=== PATIENT | female | born 1955 | race Caucasian/White ===

== ENCOUNTER → 2019-04-24 16:00 | Outpatient (BNVA) | payer BC, SELFPAY | PROVIDERS: Family Provider Nurse Practitioner Family; PCP Nurse Practitioner Family; Visit Provider Nurse Practitioner Family | DX: I10 Essential (primary) hypertension (principal); L40.9 Psoriasis, unspecified; E55.9 Vitamin D deficiency, unspecified; J01.90 Acute sinusitis, unspecified; K21.9 Gastro-esophageal reflux disease without esophagitis; G47.00 Insomnia, unspecified | CPT/HCPCS: 80053; 80061; 82306; 84443; 85025 ==

== ENCOUNTER → 2019-09-25 15:00 | Outpatient (BNVA) | payer BC, SELFPAY | PROVIDERS: Family Provider Nurse Practitioner Family; PCP Nurse Practitioner Family; Visit Provider Nurse Practitioner Family | DX: J06.9 Acute upper respiratory infection, unspecified (principal) | CPT/HCPCS: 87635 ==

== ENCOUNTER → 2019-12-18 13:15 | Outpatient (BNVA) | payer BC, SELFPAY | PROVIDERS: Family Provider Nurse Practitioner Family; PCP Nurse Practitioner Family; Visit Provider Nurse Practitioner Family | DX: Z11.59 Encounter for screening for other viral diseases (principal); Z20.828 Contact with and (suspected) exposure to other viral communicable diseases; J01.90 Acute sinusitis, unspecified | CPT/HCPCS: 87635 ==

== ENCOUNTER → 2020-02-10 16:47 | Outpatient (BNVA) | payer BC, SELFPAY | PROVIDERS: Family Provider Nurse Practitioner Family; PCP Nurse Practitioner Family; Visit Provider Nurse Practitioner Family | DX: Z20.828 Contact with and (suspected) exposure to other viral communicable diseases (principal) | CPT/HCPCS: 87635 ==

== ENCOUNTER 2020-07-15 11:05 | Outpatient (CLI) | payer BC, SELFPAY ==
--- NOTE | 2020-07-15 11:16 | XR_ITS ---
WS: [id number] THORACIC SPINE TECHNIQUE: 3 views of the thoracic spine CLINICAL INFORMATION: M54.9 - Dorsalgia, unspecified COMPARISON: None. FINDINGS: Mild thoracic curve convex left. Minimal thoracic kyphosis. Mild spondylitic changes thoracic spine. Recent appearing compression fracture L1 vertebral body described on the lumbar spine radiograph. No retropulsion. Aortic calcification. Osteopenia. No other significant findings. XR/XR thoracic spine 3V* [id number] IMPRESSION: 1. Recent appearing compression fracture L1 vertebral body described in the mary mbar spine radiograph. No retropulsion. 2. Mild thoracic curve with minimal thoracic kyphosis. 3. Mild disc space narrowing in the mid thoracic spine.
--- NOTE | 2020-07-15 11:16 | XR_ITS ---
WS: [id number] LUMBAR SPINE TECHNIQUE: 3 views of the lumbar spine CLINICAL INFORMATION: M54.9 - Dorsalgia, unspecified COMPARISON: None. FINDINGS: Five vka-tcs-liehkdy lumbar vertebral bodies. Mild lumbar curve convex right. Compression fracture raman perior endplate L1 with anterior wedging. No significant retropulsion. Loss of approximately 30% vert ebral body height. Mild compression superior endplate T12. Disc space narrowing worse at L4-L5 and L5 -S1. Moderate facet arthropathy L5-S1. Aortic calcification. XR/XR lumbar spine 2-3V* [id number] IMPRESSION: 1. Mild compression superior endplate L1 vertebral body has a recent appearanc e with loss of approximately 30% vertebral body height. No significant retropul cesar. 2. Minimal compression superior endplate T12. 3. Disc space narrowing worse L4-L5 and L5-S1. 4. Osteopenia.
== END 2020-07-15 11:06 | disposition home or self-care (01) ==
PROVIDERS: PCP Nurse Practitioner Family; Visit Provider Nurse Practitioner Family
DX: M54.5 Low back pain (principal); M54.6 Pain in thoracic spine; S22.018A Other fracture of first thoracic vertebra, initial encounter for closed fracture; M85.88 Other specified disorders of bone density and structure, other site; X58.XXXA Exposure to other specified factors, initial encounter
CPT/HCPCS: 72072; 72100; 80053; 80061; 81003; 82306; 82607; 84443; 85025; 87086

== ENCOUNTER → 2020-07-23 15:26 | Outpatient (BNVA) | payer BC, SELFPAY | PROVIDERS: PCP Nurse Practitioner Family; Visit Provider Nurse Practitioner Family | DX: R10.30 Lower abdominal pain, unspecified (principal); K92.1 Melena; K29.70 Gastritis, unspecified, without bleeding; A08.4 Viral intestinal infection, unspecified; Z68.23 Body mass index [BMI] 23.0-23.9, adult | CPT/HCPCS: 85025 ==

== ENCOUNTER 2020-07-29 11:37 | Outpatient (CLI) | payer BC, SELFPAY ==
[2020-07-29] MEDS: iohexol 300 mg/mL 50 mL Btl PO (12:19)
[2020-07-29] MEDS: iohexol 300 mg/mL 100 mL Btl IV (13:18)
--- NOTE | 2020-07-29 13:30 | CT_ITS ---
WS: [id number] CT ABDOMEN PELVIS TECHNIQUE: Contrast-enhanced CT of the abdomen and pelvis with coronal and sagittal reformatted image s. CLINICAL INFORMATION: R10.30 - Lower abdominal pain, unspecified COMPARISON: None. DLP: 1080.[address] scans at [facility] use at least one of these dose optimization techniques: automat ed exposure control; mA and/or kV adjustment per patient size (includes targeted exams where dose is matched to clinical indication); or iterative reconstruction. FINDINGS: Sigmoid diverticulosis. Mild diffuse thickening with inflammatory changes about the sigmoid colon heaven picious for diverticulitis or colitis. In addition, mild diffuse thickening with induration involving the transverse colon and left descending colon suspicious for colitis. Right colon has a more normal appearance. No free fluid in the abdomen or pelvis. Diffuse fatty infiltration of the liver. Normal portal vein a nd splenic vein. Small right hepatic cyst. Normal gallbladder. Lung bases are well aerated. Normal pa ncreatic parenchymal enhancement. Adrenal glands are normal. No hydronephrosis in either kidney. Norm al caliber abdominal aorta. Small esophageal hiatal hernia. Aortic calcification. No abdominal or pelvic lymphadenopathy. No inguinal lymphadenopathy. Tiny fat-c ontaining umbilical hernia. Mild compression superior endplate L1 unchanged since the recent [employer] phs. CT/CT abdomen pelvis w con* [id number] IMPRESSION: 1. Mild diffuse thickening of the sigmoid colon suspicious for acute diverticu litis or colitis with a small amount of surrounding inflammation. 2. Mild thickening and induration about the transverse colon and less prominen t about the left descending colon suspicious for infectious or inflammatory col itis. 3. No drainable abscess or fluid collection. 4. Small esophageal hiatal hernia. 5. No free fluid in the abdomen or pelvis. 6. Normal renal parenchymal enhancement. No hydronephrosis. 7. Mild compression superior endplate of L1 unchanged recent radiograph.
== END 2020-07-29 11:38 | disposition home or self-care (01) ==
LOC: RADWPI 11:46
PROVIDERS: PCP Nurse Practitioner Family; Visit Provider Nurse Practitioner Family
DX: R10.30 Lower abdominal pain, unspecified (principal); K57.30 Diverticulosis of large intestine without perforation or abscess without bleeding; K44.9 Diaphragmatic hernia without obstruction or gangrene
CPT/HCPCS: 74177; Q9967

== ENCOUNTER → 2020-08-03 16:34 | Outpatient (BNVA) | payer BC, SELFPAY | PROVIDERS: PCP Nurse Practitioner Family; Visit Provider Nurse Practitioner Family | DX: K92.1 Melena (principal) | CPT/HCPCS: 82272 ==

== ENCOUNTER 2021-11-21 10:28 | Emergency (ER) | payer OTHER, SELFPAY ==
--- NOTE | 2021-11-21 10:29 | ECG_ITS ---
[facility] [place] Test Date: 2021-11-21 Pat Name: Zoila Maldonado Department: Room: Gender: Female Interlocker: : 1955 Requested By: Partha Saldaña Order Number: [id number] Brandon MD: Garrett Mckeon M.D. Measurements Intervals [place] Rate: 69 P: 36 [place]: 183 QRS: 2 QRSD: 82 T: 39 QT: 397 QTc: 426 Interpretive Statements SINUS RHYTHM Compared to ECG 03/11/2016 04:31:17 Myocardial infarct finding no longer present Electronically Signed On 11-21-2021 18:34:04 CDT by Garrett Mckeon M.D. [email or web address] [email or web address] mansfield hospitalFloDesign [employer]/store/OM/[id number]
--- NOTE | 2021-11-21 10:30 | XRR_ITS ---
PROCEDURE INFORMATION: Exam: XR Chest Exam date and time: 11/21/2021 1:02 PM Age: 66 years old Clinical indication: Pain; Angina pectoris; Additional info: Cp TECHNIQUE: Imaging protocol: Radiologic exam of the chest. Views: 1 view. COMPARISON: CR XR chest 1V [id number] 03/10/2016 4:34 PM FINDINGS: Lungs: No pulmonary vascular congestion, pulmonary edema or pneumonia. Pleural spaces: No pleural effusion or pneumothorax. Heart/Mediastinum: The cardiac silhouette is not enlarged. The mediastinal contours are normal. Bones/joints: No acute osseous abnormality. XR/XR chest 1V portable [id number] IMPRESSION: No acute finding.
[2021-11-21 10:35] VITALS: BP 178/98; PULSE 67; RESP 18; TEMP 36; O2SAT 98; BMI 23.8
[2021-11-21 11:39] LABS: Basophils # 0.1 10^3/uL (0.0-0.1); Basophils % 0.9 %; Eosinophils # 0.2 10^3/uL (0.0-0.8); Hematocrit 43.6 % (37.0-47.0); Hemoglobin 14.2 g/dL (11.5-15.3); Lymphocytes # 2.1 10^3/uL (0.8-4.8); Lymphocytes % 27.4 %; Mean Corpuscular HGB Conc 32.6 g/dL (30.0-36.0); Mean Corpuscular Hemoglobin 29.8 pg (28.0-34.0); Mean Corpuscular Volume 91.4 fl (81-99); Mean Platelet Volume 9.5 fL (7.4-10.4); Monocytes # 0.6 10^3/uL (0.2-0.9); Neutrophils # 4.59 10^3/uL (1.8-7.7); Neutrophils % 60.3 %; Nucleated Red Blood Cells % 0 %; Platelet Count 327 10^3/cmm (130-400); Red Blood Count 4.77 10^6/uL (4.1-5.3); Red Cell Distribution Width 11.5 % (12.1-15.1); White Blood Count 7.6 10^3/uL (4.0-10.0)
[2021-11-21 12:01] LABS: Troponin(5th) Baseline 6 ng/L (0-10)
[2021-11-21 12:02] LABS: Alanine Aminotransferase 14 U/L (0-33); Albumin Level 4.1 g/dL (3.5-5.2); Alkaline Phosphatase 83 U/L (35-105); Anion Gap 14.3 (5-19); Aspartate Amino Transferase 16 U/L (0-32); Blood Urea Nitrogen 9 mg/dL (8-23); Calcium 9.7 mg/dL (8.5-10.5); Carbon Dioxide 27 mmol/L (22-29); Chloride 104 mmol/L (98-107); Globulin 2.8 g/dL (1.3-4.6); Glomerular Filtration Rate 100.6 mL/min (90-130); Glucose 90 mg/dL (65-115); Osmolality Calculated 290 mOsm/kg (285-295); Potassium 4.3 mmol/L (3.5-5.1); Sodium 141 mmol/L (136-145); Total Bilirubin 0.3 mg/dL (0.15-1.2); Total Protein 6.9 g/dL (6.6-8.7)
--- NOTE | 2021-11-21 13:49 | ED_ITS ---
HPI - Chest Pain General: Chief Complaint: Chest Pain Stated Complaint: Neck and Chest pain, has had a heart attack before Time Seen by Provider: 11/21/21 10:30 History of Present Illness: 66-year-old female presents with generalized body aches, malaise, headache, cough, chest discomfort. Patient reports that she has had a heart attack in the past and just wanted to be sure that does not what was going on. She does report that she had family come over within the last week to 10 days that had viral illnesses and had similar symptoms. No reports of fever. Associated symptoms: Reports nausea; Deny abdominal pain, dyspnea, fever(s), palpitations or vomiting Review of Systems Const: Reports: chills, body aches, fatigue and malaise; Denies: fever(s) Eyes: Denies: change in vision or blurry vision ENMT: Denies: throat pain or ear or mastoid pain Card: Denies: chest pain or palpitations Resp: Reports: chest congestion; Denies: dyspnea or productive cough GI: Reports: nausea; Denies: abdominal pain or vomiting : Denies: flank pain, difficulty voiding or urinary urgency Musc: Reports: other (Diffuse body aches) Skin/Breast: Denies: rash or pruritus Neuro: Denies: headache(s), numbness in extremities or dizziness Psych: Denies: anxiety or depression PFSH ED PFSH: Medical History Anxiety Coronary artery disease Depression Dyslipidemia Fibromyalgia GERD (gastroesophageal reflux disease) History of ST elevation myocardial infarction (STEMI) HTN (hypertension) Osteoarthritis Vitamin D deficiency Surgical History H/O section S/P PTCA (percutaneous transluminal coronary angioplasty) S/P tubal ligation Family History Mother Hypertension Sister Hypertension Diabetes Father Heart disease Other Cancer Social History Smoking and tobacco status: never smoked Second hand smoke exposure: No Alcohol intake: never Lives independently: Yes Household members: spouse Marital status: Current occupational status: employed 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 History of recent travel: No Current gender identity: Female Physical Exam Const: COMMON NORMALS: no acute distress, patient oriented x3 and alert HENMT: COMMON NORMALS: normocephalic, atraumatic and hearing grossly normal bilaterally HEAD & SCALP: normocephalic and atraumatic Resp: COMMON NORMALS: normal respiratory effort, No retractions and No use of accessory muscles Cardio: COMMON NORMALS: regular rate and regular rhythm RATE: regular rate RHYTHM: regular rhythm GI: COMMON NORMALS: Normal to inspection, nondistended, normoactive bowel sounds present, Soft to palpation and non-tender PALPATION: Yes Soft to palpation Extremity: COMMON NORMALS: full ROM and capillary refill normal Neuro: COMMON NORMALS: patient oriented x3, CN's II-XII intact bilaterally and moves all extremities SENSORIUM/ORIENTATION: Yes alert Psych: COMMON NORMALS: mental status grossly normal, cooperative and normal affect Skin: COMMON NORMALS: no rashes or lesions noted and turgor normal GENERAL SKIN EXAM: no rashes or lesions noted and turgor normal Course Vital Signs: Vital signs: Vital Signs Temperature 96.8 F L 11/21/21 10:35 Pulse Rate 67 11/21/21 10:35 Respiratory Rate 18 11/21/21 10:35 Blood Pressure 178/98 11/21/21 10:35 Pulse Oximetry 98 11/21/21 10:35 Oxygen Delivery Me thod 11/21/21 10:35 MDM - Chest Pain Medical Decision Making Patient symptoms are consistent with viral syndrome especially with known exposure.. Patient with 2 negative troponins, 2 normal EKGs. Patient very low risk for ACS. Patient stable and discharged home Lab Data : 11/21/21 11:27 11/21/21 11:27 Radiology Impressions Chest X-Ray 11/21/21 10:30 IMPRESSION: No acute finding. Laboratory Results WBC 7.6 10^3/uL (4.0-10.0) 11/21/21 11:27 RBC 4.77 10^6/uL (4.1-5.3) 11/21/21 11:27 Hgb 14.2 g/dL (11.5-15.3) 11/21/21 11:27 Hct 43.6 % (37.0-47.0) 11/21/21 11:27 MCV 91.4 fl (81-99) 11/21/21 11:27 MCH 29.8 pg (28.0-34.0) 11/21/21 11:27 MCHC 32.6 g/dL (30.0-36.0) 11/21/21 11:27 RDW 11.5 % (12.1-15.1) L 11/21/21 11:27 Plt Count 327 10^3/cmm (130-400) 11/21/21 11:27 MPV 9.5 fL (7.4-10.4) 11/21/21 11:27 Neut % (Auto) 60.3 % 11/21/21 11: Lymph % (Auto) 27.4 % 11/21/21 11: Nuckolls % (Auto) 8.0 % 11/21/21 11: Eos % (Auto) 3.0 % 11/21/21 11: Baso % (Auto) 0.9 % 11/21/21 11: Neut # (Auto) 4.59 10^3/uL (1.8-7.7) 11/21/21 11: Lymph # (Auto) 2.1 10^3/uL (0.8-4.8) 11/21/21 11: Nuckolls # (Auto) 0.6 10^3/uL (0.2-0.9) 11/21/21 11: Eos # (Auto) 0.2 10^3/uL (0.0-0.8) 11/21/21 11:27 Baso # (Auto) 0.1 10^3/uL (0.0-0.1) 11/21/21 11: Nucleated RBC % (auto) 0 % 11/21/21 11:27 Nucleated RBCs # 0.0 /100WBC 11/21/21 11:27 Sodium 141 mmol/L (136-145) 11/21/21 11:27 Potassium 4.3 mmol/L (3.5-5.1) 11/21/21 11:27 Chloride 104 mmol/L (98-107) 11/21/21 11:27 Carbon Dioxide 27 mmol/L (22-29) 11/21/21 11:27 Anion Gap 14.3 (5-19) 11/21/21 11:27 BUN 9 mg/dL (8-23) 11/21/21 11:27 Creatinine 0.6 mg/dL (0.5-0.9) 11/21/21 11:27 GFR Calculation 100.6 mL/min (90-130) 11/21/21 11:27 Glucose 90 mg/dL (65-115) 11/21/21 11:27 Calculated Osmolality 290 mOsm/kg (285-295) 11/21/21 11:27 Calcium 9.7 mg/dL (8.5-10.5) 11/21/21 11:27 Total Bilirubin 0.3 mg/dL (0.15-1.2) 11/21/21 11:27 AST 16 U/L (0-32) 11/21/21 11:27 ALT 14 U/L (0-33) 11/21/21 11:27 Alkaline Phosphatase 83 U/L (35-105) 11/21/21 11:27 Troponin T Baseline 6 ng/L (0-10) 11/21/21 11:27 Troponin T 120 Minute 6.00 ng/L (0-10) 11/21/21 13:09 Delta Troponin T 0 ABS# (0-10) 11/21/21 13:09 Total Protein 6.9 g/dL (6.6-8.7) 11/21/21 11:27 Albumin 4.1 g/dL (3.5-5.2) 11/21/21 11:27 Globulin 2.8 g/dL (1.3-4.6) 11/21/21 11:27 EKG Data EKG 1: I personally reviewed and interpreted this EKG as follows: EKG interpretation date: 11/21/21 EKG interpretation time: 10:35 Interpretation: Normal sinus rhythm, heart rate 69, ID interval 183, QRS 82, normal EKG EKG 2: I personally reviewed and interpreted this EKG as follows: EKG interpretation date: 11/21/21 EKG interpretation time: 13:59 Interpretation: Heart rate 61, sinus rhythm, ID 201, QRS 89, normal EKG, unchanged from previous Discharge Plan Discharge Patient Disposition: Home Clinical Impression: Viral syndrome Condition: Stable Prescriptions: No Action aspirin [Adult Low Dose Aspirin] 81 mg tablet,delayed release (DR/EC) 81 mg PO BEDTIME Plavix 75 mg tablet 75 mg PO QAM simvastatin 40 mg tablet 40 mg PO QAM lisinopril 5 mg tablet 5 mg PO QAM metoprolol succinate 25 mg tablet extended release 24 hr 25 mg PO BEDTIME Discharge Orders: Discharge ED (Routine); Ordered 11/21/21 Ordered By: German Moon Referrals: Pau Chapa FNP [Primary Care Provider] - Patient Instructions: Opioid Safety, Pain Management, Viral Syndrome - Adult Activity Restrictions/Additional Instructions: Follow-up with your primary care provider as needed Coding Level of Care Code ED Engine Buildup Mechanic for Chg Fwd Exam Comprehensive
[2021-11-21 13:53] LABS: Troponin 5 2HR Delta 0 ABS# (0-10)
--- NOTE | 2021-11-21 13:59 | ECG_ITS ---
[facility] Test Date: 2021-11-21 Pat Name: Zoila Maldonado Department: Room: Gender: Female Insurance Territory Manager: : 1955 Requested By: Partha Saldaña Order Number: [id number] Brandon MD: Garrett Mckeon M.D. Measurements Intervals [place] Rate: 61 P: 36 [place]: 201 QRS: 18 QRSD: 89 T: 43 QT: 418 QTc: 423 Interpretive Statements SINUS RHYTHM Compared to ECG 11/21/2021 10:34:15 No significant changes Electronically Signed On 11-21-2021 18:34:57 CDT by Garrett Mckeon M.D. [email or web address]/[id number]
[2021-11-21 14:31] VITALS: BP 165/76; PULSE 68; RESP 17; O2SAT 96
== END 2021-11-21 14:39 | disposition home or self-care (01) ==
PROVIDERS: Emergency Medicine; Emergency Provider Student in an Organized Health Care Education/Training Program; PCP Nurse Practitioner Family
DX: B34.9 Viral infection, unspecified (principal); Z79.02 Long term (current) use of antithrombotics/antiplatelets; Z79.82 Long term (current) use of aspirin; I25.10 Atherosclerotic heart disease of native coronary artery without angina pectoris; E78.5 Hyperlipidemia, unspecified; I25.2 Old myocardial infarction; I10 Essential (primary) hypertension
CPT/HCPCS: 36415; 71045; 80053; 84484; 85025; 93005; 99285

== ENCOUNTER → 2022-05-12 10:59 | Outpatient (BNVA) | payer MEDICARE, MEDICAID, SELFPAY | PROVIDERS: PCP Nurse Practitioner Family; Visit Provider Nurse Practitioner Family | DX: E78.5 Hyperlipidemia, unspecified (principal); E55.9 Vitamin D deficiency, unspecified; K21.9 Gastro-esophageal reflux disease without esophagitis; G47.00 Insomnia, unspecified; I10 Essential (primary) hypertension; R10.32 Left lower quadrant pain; Z12.11 Encounter for screening for malignant neoplasm of colon | CPT/HCPCS: 80053; 80061; 82306; 82607; 84443; 85025 ==

== ENCOUNTER → 2022-08-22 10:23 | Outpatient (BNVA) | payer MEDICARE, MEDICAID, SELFPAY | PROVIDERS: PCP Nurse Practitioner Family; Visit Provider Internal Medicine Cardiovascular Disease | DX: I25.10 Atherosclerotic heart disease of native coronary artery without angina pectoris (principal); I10 Essential (primary) hypertension; E78.5 Hyperlipidemia, unspecified; K21.9 Gastro-esophageal reflux disease without esophagitis; Z79.82 Long term (current) use of aspirin | CPT/HCPCS: 99214 ==

== ENCOUNTER → 2022-10-04 08:45 | Outpatient (BNVA) | payer MEDICARE, MEDICAID, SELFPAY | PROVIDERS: PCP Nurse Practitioner Family; Visit Provider Nurse Practitioner Family | DX: Z78.0 Asymptomatic menopausal state (principal); Z12.39 Encounter for other screening for malignant neoplasm of breast; Z12.4 Encounter for screening for malignant neoplasm of cervix; E78.5 Hyperlipidemia, unspecified | CPT/HCPCS: 80053; 80061; 85025; 87624 ==

== ENCOUNTER 2022-10-25 13:38 | Outpatient (CLI) | payer MEDICARE, MEDICAID, SELFPAY ==
--- NOTE | 2022-10-25 13:45 | MM_ITS ---
WS: [id number] BILATERAL 3D TOMOSYNTHESIS DIGITAL SCREENING MAMMOGRAPHY WITH CAD CLINICAL INFORMATION: Z12.39 - Encounter for other screening for malignant neop... HISTORY: Screening mammogram. No current complaints. COMPARISON: 2015 TECHNIQUE: Bilateral CC and MLO views. FINDINGS: The breasts are composed of heterogeneous fibroglandular density tissue, which can limit the detectio n of small underlying mass lesions. No suspicious mass, asymmetry, calcifications, or architectural d istortion. No evidence of malignancy. A few tiny incidental punctate calcifications. IMPRESSION: MM/[place] [id number] BI-RADS: 2-Benign FOLLOW UP: 1 Year Follow-up Recommend return to annual screening mammography.
--- NOTE | 2022-10-25 14:30 | XR_ITS ---
WS: [id number] SCREENING DEXA SCAN [employer] CLINICAL INFORMATION: Z78.0 - Asymptomatic menopausal state COMPARISON: None. FINDINGS: The L1-L4 bone mineral density measures 0.928 g/cm2. This corresponds to a T score score of -2.1 and Z score of -0.4. Left femoral neck bone mineral density measures 0.784 g/cm2. This corresponds to a T score of -1.8 an d Z score of -0.4. Right femoral neck bone mineral density measures 0.795 g/cm2. This corresponds to a T score -1.7of an d Z score of -0.4. Mean femoral neck bone mineral density measures 0.790 g/cm2. This corresponds to a T score of -1.7 an d Z score of -0.4. IMPRESSION: Osteopenia lumbar spine. Osteopenia femoral necks. Patient's FRAX calculated 10 year probability for major osteoporotic fracture is 13.8% and osteoporot ic hip fracture is 3.1%.
== END 2022-10-25 13:39 | disposition home or self-care (01) ==
PROVIDERS: PCP Nurse Practitioner Family; Visit Provider Nurse Practitioner Family
DX: Z12.31 Encounter for screening mammogram for malignant neoplasm of breast; Z78.0 Asymptomatic menopausal state; M85.89 Other specified disorders of bone density and structure, multiple sites
CPT/HCPCS: 77063; 77067; 77080

== ENCOUNTER 2023-02-17 16:33 | Emergency (ER) | payer MEDICARE, MEDICAID, SELFPAY ==
--- NOTE | 2023-02-17 16:37 | XRR_ITS ---
PROCEDURE INFORMATION: Exam: XR Chest Exam date and time: 02/17/2023 5:20 PM Age: 68 years old Clinical indication: Chest pressure; Patient HX: Sudden onset chest pain; Cough; Chest congestion; HX mi TECHNIQUE: Imaging protocol: Radiologic exam of the chest. Views: 1 view. COMPARISON: CR XR chest 1V portable [id number] 11/21/2021 1:02 PM FINDINGS: Lungs: Unremarkable. No consolidation. Pleural spaces: Unremarkable. No pleural effusion. No pneumothorax. Heart/Mediastinum: Unremarkable. No cardiomegaly. Bones/joints: Unremarkable. XR/XR chest 1V portable [id number] IMPRESSION: No acute findings.
--- NOTE | 2023-02-17 16:39 | ECG_ITS ---
[facility] Test Date: 2023-02-17 Pat Name: Zoila Maldonado Department: Room: Gender: Female Automatic Hemmer: : 1955 Requested By: Partha Saldaña Order Number: [id number] Brandon MD: Kim Schulte M.D. Measurements Intervals [place] Rate: 82 P: 35 [place]: 168 QRS: 9 QRSD: 91 T: 44 QT: 359 QTc: 420 Interpretive Statements SINUS RHYTHM Compared to ECG 11/21/2021 13:59:42 No significant changes Electronically Signed On 02-18-2023 19:36:16 FISH EGG PACKER by Kim Schulte M.D. [id number]
[2023-02-17 16:40] VITALS: PULSE 90; RESP 20; TEMP 36.8; O2SAT 97
[2023-02-17 17:16] LABS: Basophils # 0.1 10^3/uL (0.0-0.1); Basophils % 0.5 %; Eosinophils # 0.3 10^3/uL (0.0-0.8); Hematocrit 40.7 % (36-47); Lymphocytes # 2.1 10^3/uL (0.8-4.8); Lymphocytes % 18.1 %; Mean Corpuscular HGB Conc 32.4 g/dL (30-55); Mean Corpuscular Hemoglobin 29.5 pg (27-33); Mean Corpuscular Volume 91.1 fl (85-98); Mean Platelet Volume 9.1 fL (7.4-10.4); Monocytes # 1.1 10^3/uL (0.2-0.9); Monocytes % 9.5 %; Neutrophils # 7.88 10^3/uL (1.8-7.7); Neutrophils % 68.4 %; Nucleated Red Blood Cells % 0 %; Platelet Count 307 10^3/cmm (157-399); Red Blood Count 4.47 10^6/uL (3.85-5.65); Red Cell Distribution Width 11.8 % (12.1-15.1); White Blood Count 11.52 10^3/uL (3.29-11.43)
[2023-02-17 17:18] VITALS: BP 158/101; PULSE 104; RESP 20; O2SAT 96
--- NOTE | 2023-02-17 17:30 | ED_ITS ---
HPI - Chest Pain 2 General: Chief Complaint: Chest Pain Stated Complaint: CP Time Seen by Provider: 02/17/23 17:17 History of Present Illness: 68-year-old female presents emerged part with complaints of left anterior chest wall pain. She states she has had a cough for the previous 1 week and then it noticed today she felt like she had some heaviness to her chest. She states she also has a sore throat from coughing and laryngitis where she is started having a raspy voice about 3 days ago. She denies shortness of breath dizziness lightheaded feeling. She states she does take Plavix for her previous cardiac stent placement. She states her chest heaviness lasted for approximately 10 seconds after coughing and was a 2 out of 10. Review of Systems 2 General: Reports: 10 or more systems reviewed and unremarkable except in HPI and below ENMT: Reports: throat pain and hoarseness Card: Reports: chest pain Resp: Reports: non-productive cough PFSH ED 2 PFSH: Medical History Anxiety Coronary artery disease Depression Dyslipidemia Fibromyalgia GERD (gastroesophageal reflux disease) History of ST elevation myocardial infarction (STEMI) HTN (hypertension) Osteoarthritis Vitamin D deficiency Surgical History H/O section S/P PTCA (percutaneous transluminal coronary angioplasty) S/P tubal ligation Family History Mother Hypertension Sister Hypertension Diabetes Father Heart disease Other Cancer Social History Smoking and tobacco/nicotine status: never used tobacco/nicotine Second hand smoke exposure: No Alcohol intake: never Substance/Drug Use: never Lives independently: Yes Household members: spouse Marital status: Current occupational status: employed 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 Vital signs reviewed as documented. HENMT: Normocephalic, atraumatic. Extermal ears with normal appearance without drainage. Nose without drainage, normal appearance. Mucus membranes moist. Mild erythema to the posterior oropharynx Neck is supple, No jugular venous distension, trachea is midline, no appreciable carotid bruits. No lymphadenopathy. No meningeal signs. Flexion, extension and lateral rotation is without pain. Eyes: Pupils are equal, round, reactive to light and accommodation. No scleral icterus. Extra-ocular movement are intact. Thorax is symmetrical and with equal rise and fall with respirations. Resp: Lungs are clear to auscultation. No wheezes, rales, crackles or ronchi at present. Cardio: Regular rate and rhythm. Positive S1, S2. No appreciable murmurs, rubs or gallops. GI: Abdominal exam reveals normal bowel sounds to all quadrants. No organomegaly. No obvious palpable masses noted. No hepatomegally appreciated. Soft, nontender to palpation. Extremity: Extremities are non-edematous and both femoral and pedal pulses are 2+ and equal bilaterally. Moves all extremities well, sensation in all extremities. Neuro: Alert and oriented x4, person, place, time and situation. Cranial nerves II through XII are grossly intact, there is no focal neurological deficits that I can appreciate at present. Motor strength in the upper and lower extremities are equal and bilateral 5/5. Psych: Cooperative, calm, normal thought process, appropriate judgment. Skin: No lesions, rashes. No gross abnormalities noted. Back: Symmetrical, no obvious deformity, No CVA tenderness Course 2 Vital Signs: Vital signs: Vital Signs Temperature 98.2 F 02/17/23 16:40 Pulse Rate 84 02/17/23 19:35 Respiratory Rate 17 02/17/23 19:35 Blood Pressure 159/88 02/17/23 19:35 Pulse Oximetry 97 02/17/23 19:35 Oxygen Delivery Me thod Room Air 02/17/23 18:01 MDM - Chest Pain Medical Decision Making Physical exam completed and documented, I will obtain serial cardiac enzymes, serial twelve-lead EKGs, chest x-ray, CBC, CMP, urinalysis, B-type natriuretic peptide, PT/PTT/INR, and a chest x-ray. I provide cardiac dose aspirin if indicated and nitroglycerin administration if indicated. I have reviewed any pervious and pertinent medical records for assist in obtaining beneficial medical information to improved the care and treatment of the patient. Medical Records I reviewed the patient's medical records. Lab Data I reviewed the patient's lab results. 02/17/23 17:10 02/17/23 17:10 Radiology Impressions Chest X-Ray 02/17/23 16:37 IMPRESSION: No acute findings. Laboratory Results WBC 11.52 10^3/uL (3.29-11.43) H 02/17/23 17:10 RBC 4.47 10^6/uL (3.85-5.65) 02/17/23 17:10 Hgb 13.20 g/dL (11.27-16.99) 02/17/23 17:10 Hct 40.7 % (36-47) 02/17/23 17:10 MCV 91.1 fl (85-98) 02/17/23 17:10 MCH 29.5 pg (27-33) 02/17/23 17:10 MCHC 32.4 g/dL (30-55) 02/17/23 17:10 RDW 11.8 % (12.1-15.1) L 02/17/23 17:10 Plt Count 307 10^3/cmm (157-399) 02/17/23 17:10 MPV 9.1 fL (7.4-10.4) 02/17/23 17:10 Neut % (Auto) 68.4 % 02/17/23 17:10 Lymph % (Auto) 18.1 % 02/17/23 17:10 [place] % (Auto) 9.5 % 02/17/23 17:10 Eos % (Auto) 3.0 % 02/17/23 17:10 Baso % (Auto) 0.5 % 02/17/23 17:10 Neut # (Auto) 7.88 10^3/uL (1.8-7.7) H 02/17/23 17:10 Lymph # (Auto) 2.1 10^3/uL (0.8-4.8) 02/17/23 17:10 [place] # (Auto) 1.1 10^3/uL (0.2-0.9) H 02/17/23 17:10 Eos # (Auto) 0.3 10^3/uL (0.0-0.8) 02/17/23 17:10 Baso # (Auto) 0.1 10^3/uL (0.0-0.1) 02/17/23 17:10 Nucleated RBC % (auto) 0 % 02/17/23 17:10 Nucleated RBCs # 0.0 /100WBC 02/17/23 17:10 Sodium 139 mmol/L (136-145) 02/17/23 17:10 Potassium 4.2 mmol/L (3.5-5.1) 02/17/23 17:10 Chloride 102 mmol/L (98-107) 02/17/23 17:10 Carbon Dioxide 27 mmol/L (22-29) 02/17/23 17:10 Anion Gap 14.2 (5-19) 02/17/23 17:10 BUN 8 mg/dL (8-23) 02/17/23 17:10 Creatinine 0.7 mg/dL (0.5-0.9) 02/17/23 17:10 GFR Calculation 83.7 mL/min (90-130) L 02/17/23 17:10 Glucose 106 mg/dL (65-115) 02/17/23 17:10 Calculated Osmolality 287 mOsm/kg (285-295) 02/17/23 17:10 Calcium 9.5 mg/dL (8.5-10.5) 02/17/23 17:10 Total Bilirubin 0.3 mg/dL (0.15-1.2) 02/17/23 17:10 AST 19 U/L (0-32) 02/17/23 17:10 ALT 15 U/L (0-33) 02/17/23 17:10 Alkaline Phosphatase 93 U/L (35-105) 02/17/23 17:10 Troponin T Baseline 8 ng/L (0-10) 02/17/23 17:10 Troponin T 120 Minute 6.00 ng/L (0-10) 02/17/23 19:14 Delta Troponin T -2.00 ABS# (0-10) L 02/17/23 19:14 Total Protein 6.4 g/dL (6.6-8.7) L 02/17/23 17:10 Albumin 4.1 g/dL (3.5-5.2) 02/17/23 17:10 Globulin 2.3 g/dL (1.3-4.6) 02/17/23 17:10 All radiology interpretation(s) finalized by discharge EKG Data EKG 2: Interpretation: Repeat twelve-lead EKG at 1833 demonstrates normal sinus rhythm with a ventricular rate of 77 bpm, UT interval 178 QRS duration 86 QT 400 QTc [address] elevation or depression to indicate acute ischemia or infarction at present. Discharge Plan Discharge Patient Disposition: Home Clinical Impression: Viral URI with cough, Atypical chest pain, Acute viral pharyngitis Condition: Stable Prescriptions: New benzonatate 200 mg capsule 200 mg PO TID Qty: 30 0RF Chloraseptic Max Sore Throat 1.5-33 % spray,non-aerosol 2 spray mucous membrane TID Qty: 118 0RF Rx Instructions: leave on area for 15 seconds then spit out No Action aspirin [Adult Low Dose Aspirin] 81 mg tablet,delayed release (DR/EC) 81 mg PO BEDTIME clopidogrel 75 mg tablet See Rx Instructions .ROUTE .COMPLEX Qty: 90 3RF Dose Instruction: Take 1 tablet by mouth once daily Rx Instructions: Take 1 tablet by mouth once daily trazodone 50 mg tablet See Rx Instructions .ROUTE .COMPLEX Qty: 90 0RF Dose Instruction: Take 1 tablet by mouth once daily Rx Instructions: Take 1 tablet by mouth once daily lisinopril 5 mg tablet 5 mg PO QAM Qty: 90 3RF simvastatin 40 mg tablet 40 mg PO QAM Qty: 90 3RF metoprolol succinate 25 mg tablet extended release 24 hr 25 mg PO BEDTIME Qty: 90 3RF alendronate 70 mg tablet See Rx Instructions .ROUTE .COMPLEX Qty: 12 3RF Dose Instruction: TAKE 1 TABLET BY MOUTH WEEKLY WITH 8 OZ OF PLAIN WATER 30 MINUTES BEFORE FIRST FOOD, DRINK OR MEDS. STAY UPRIGHT FOR 30 MINS Rx Instructions: TAKE 1 TABLET BY MOUTH WEEKLY WITH 8 OZ OF PLAIN WATER 30 MINUTES BEFORE FIRST FOOD, DRINK OR MEDS. STAY UPRIGHT FOR 30 MINS Discharge Orders: Discharge ED (Routine); Ordered 02/17/23 Ordered By: Keyur Koo Referrals: Pau Chapa FNP [Primary Care Provider] - Discharge Diet: Advance as tolerated Discharge Activity: Resume usual activity Patient Instructions: Opioid Safety, Pain Management Activity Restrictions/Additional Instructions: Activity Restrictions/Additional Instructions: Thank you for choosing [facility] for your healthcare needs today. Please realize that you were seen in the Emergency Department and that we are providing you with an emergency medical screening exam and this may not be a complete and all inclusive of all the testing and or medical work-up that you may need to determine your ailment or severity of your illness. It is very important that you follow-up as instructed with your Primary care provider or Specialist for additional evaluation and to discuss your medical treatment plan. You may return to the Emergency Department should you have concerns or if your condition changes or worsens in any way. Coding Level of Care Code ED [employer] for Renetta Epstein
[2023-02-17 17:34] LABS: Troponin(5th) Baseline 8 ng/L (0-10)
[2023-02-17 17:44] LABS: Alanine Aminotransferase 15 U/L (0-33); Albumin Level 4.1 g/dL (3.5-5.2); Alkaline Phosphatase 93 U/L (35-105); Aspartate Amino Transferase 19 U/L (0-32); Blood Urea Nitrogen 8 mg/dL (8-23); Calcium 9.5 mg/dL (8.5-10.5); Carbon Dioxide 27 mmol/L (22-29); Chloride 102 mmol/L (98-107); Creatinine Clr Calc Pharmacy 59.5737; Globulin 2.3 g/dL (1.3-4.6); Glomerular Filtration Rate 83.7 mL/min (90-130); Glucose 106 mg/dL (65-115); Osmolality Calculated 287 mOsm/kg (285-295); Sodium 139 mmol/L (136-145); Total Bilirubin 0.3 mg/dL (0.15-1.2); Total Protein 6.4 g/dL (6.6-8.7)
[2023-02-17 17:45] LABS: Anion Gap 14.2 (5-19); Potassium 4.2 mmol/L (3.5-5.1)
[2023-02-17 18:01] VITALS: BP 143/96; PULSE 94; RESP 16; O2SAT 96
[2023-02-17 18:30] VITALS: BP 138/90; PULSE 79; RESP 16; O2SAT 96
--- NOTE | 2023-02-17 18:33 | ECG_ITS ---
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 Measurements Intervals [place] Rate: 77 P: 34 NH: 178 QRS: 8 QRSD: 86 T: 37 QT: 400 QTc: 454 Interpretive Statements SINUS RHYTHM Compared to ECG 11/21/2021 13:59:42 No significant changes Electronically Signed On 02-17-2023 19:01:07 WINE [employer]STER by Kim Schulte M.D. [id number]
[2023-02-17 19:35] VITALS: BP 159/88; PULSE 84; RESP 17; O2SAT 97
[2023-02-17] MEDS: benzonatate 100 mg Capsule 200 MG PO (19:35)
[2023-02-17] MEDS: phenol oral Spray 177 mL 3 SPRAY MUCOUS MEM (19:51)
== END 2023-02-17 20:33 | disposition home or self-care (01) ==
PROVIDERS: Emergency Medicine; Emergency Provider Internal Medicine; PCP Nurse Practitioner Family
DX: J02.8 Acute pharyngitis due to other specified organisms (principal); R07.89 Other chest pain; Z79.02 Long term (current) use of antithrombotics/antiplatelets; Z79.82 Long term (current) use of aspirin; I25.10 Atherosclerotic heart disease of native coronary artery without angina pectoris; E78.5 Hyperlipidemia, unspecified; I25.2 Old myocardial infarction; I10 Essential (primary) hypertension
CPT/HCPCS: 36415; 71045; 80053; 84484; 85025; 93005; 99285

== ENCOUNTER → 2024-10-22 13:06 | Outpatient (BNVA) | payer MEDICARE, SELFPAY | PROVIDERS: Visit Provider Internal Medicine Cardiovascular Disease | DX: R00.2 Palpitations (principal); I10 Essential (primary) hypertension; E78.5 Hyperlipidemia, unspecified; C67.9 Malignant neoplasm of bladder, unspecified; I25.2 Old myocardial infarction | CPT/HCPCS: 99214 ==